=== PATIENT | female | born 1945 | race Hispanic/Latino ===

== ENCOUNTER → 2022-03-24 | Outpatient (CLI) | payer MEDICARE, OTHER ==
[~2022-03-24] MED LIST: ALBUTEROL 0.083% 2.5 MG/3 ML INH IH ONE
== END | disposition home or self-care (01) ==
LOC: RESP 09:16
PROVIDERS: ATTEND Internal Medicine Cardiovascular Disease
DX: R06.00 Dyspnea, unspecified (principal)
CPT/HCPCS: 94060; 94727; 94729

== ENCOUNTER → 2024-02-13 | Outpatient (CLI) | payer OTHER | END | disposition home or self-care (01) | LOC: SHCH 14:07 | PROVIDERS: ATTEND Internal Medicine Cardiovascular Disease | DX: I48.0 Paroxysmal atrial fibrillation (principal) | CPT/HCPCS: 78481; A9512 ==

== ENCOUNTER 2024-07-10 06:59 | Observation (INO) | payer OTHER, MEDICARE ==
[2024-07-06 10:50] VITALS: BP 161/86; PULSE 62; RESP 16; TEMP 97.7
[2024-07-06 10:54] LABS: INR 1.11 (0.85-1.15); PROTHROMBIN TIME 11.6 SEC (9.6-11.6)
[2024-07-06 10:56] LABS: PARTIAL THROMBOPLASTIN TIME 27.7 SEC (26.3-35.5)
[2024-07-06 10:58] LABS: CREATININE 0.8 mg/dL (0.5-1.0)
--- NOTE | 2024-07-06 11:01 | EKG ---
[facility] Test Date: 2024-07-06 Test Time: 10:35:17 Pat Name: FADY HECTOR Department: [facility] Room: Gender: F Business Process Associate: [id number] : 1945 Requested By: ANIA WALTON Order Number: [id number] Reading MD: Trung Montana Measurements Intervals [place] Rate: 60 P: 42 VA: 196 QRS: -69 QRSD: 144 T: 117 QT: 454 QTc: 454 Interpretive Statements Atrial-ventricular dual-paced rhythm Compared to ECG 04/02/2024 11:34:35 No significant changes Electronically Signed On 07-06-2024 15:52:22 CDT by Trung Montana Please click the below link to view image of tracing.
[2024-07-06 11:13] LABS: BASOPHILS # (AUTO) 0.05 K/uL (0.00-0.20); BASOPHILS % (AUTO) 0.4 % (0.0-5.0); EOSINOPHILS # (AUTO) 0.13 K/uL (0.00-0.70); EOSINOPHILS % (AUTO) 1.1 % (0.0-8.0); HEMATOCRIT 40.3 % (36-48); IMMATURE GRANULOCYTE ABSOLUTE 0.06 K/uL (0-1); LYMPHOCYTES # (AUTO) 1.7 K/uL (1.0-4.8); LYMPHOCYTES % (AUTO) 14.9 % (21.0-51.0); MEAN CORPUSCULAR HEMOGLOBIN 30.3 pg (27.0-33.0); MEAN CORPUSCULAR HGB CONC 32.8 g/dL (32.0-36.0); MEAN CORPUSCULAR VOLUME 92.4 fL (79-99); MONOCYTES % (AUTO) 8.4 % (3.0-13.0); NEUTROPHILS # (AUTO) 8.7 K/uL (1.8-7.7); NEUTROPHILS % (AUTO) 74.7 % (40.0-77.0); PLATELET COUNT (AUTO) 212 K/uL (130-400); RED BLOOD CELL COUNT(AUTO) 4.36 MIL/uL (4.00-5.50); RED CELL DISTRIBUTION WIDTH 13.6 % (11.0-15.5); WHITE BLOOD COUNT (AUTO) 11.6 K/uL (4.8-10.8)
[~2024-07-10] VITALS: Ht 149.9 cm; Wt 65.8 kg
[2024-07-10] VITALS (46 sets, daily range): BP systolic 123–164; BP diastolic 69–90; PULSE 60–71; RESP 13–22; TEMP 97.4–98.9; O2SAT 94–98
[~2024-07-10 06:59] MED LIST changes: -ALBUTEROL 0.083% 2.5 MG/3 ML INH IH ONE; +APIX5TAB PO; +ASCO100031 PO; +ATOR40TA71 PO; +DENO60DI SQ; +DRON400T7 PO; +PROP20TA7 PO; +collagen PO; +potassium PO
[2024-07-10] MEDS ORDERED: ondanSETRON 4MG INJ ONE (07:48)
[2024-07-10] MEDS ORDERED: SUCCINYLCHOLINE CHLORIDE 20 MG/ML 10 ML VIAL ONE (07:48)
[2024-07-10] MEDS ORDERED: dexaMETHasone SOD PHOSPHATE 10MG/ML 1ML VIAL ONE (07:48)
[2024-07-10] MEDS ORDERED: NEOSTIGMINE METHYLSULFATE 1MG/ML IV ONE (07:48)
[2024-07-10] MEDS ORDERED: GLYCOPYRROLATE 0.2 MG/ML 5 ML VIAL ONE (07:48)
[2024-07-10] MEDS ORDERED: rocuRONium bROMide 10MG/1ML 5ML VL ONE (07:48)
[2024-07-10] MEDS ORDERED: proPOFol 10 MG/ML 20ML VIAL IV ONE (07:48)
[2024-07-10] MEDS ORDERED: LIDOCAINE PF 100MG/5ML (2%) SYRINGE 5ML ONE (07:48)
[2024-07-10] MEDS ORDERED: FENTanyl CITRate PF 50 MCG/1 ML 2ML VIAL ONE (07:49)
[2024-07-10] MEDS ORDERED: MIDAZOLAM HCL 1 MG/ML 2ML VIAL ONE (07:51)
[2024-07-10] MEDS: 0.9%NACL 1000ML 1,000 ML IV ONE (08:00)
[2024-07-10] MEDS ORDERED: ketaMINE 50MG/ML SYRINGE 50 MG/ML DISP.SYRIN ONE (08:08)
[2024-07-10] MEDS ORDERED: ALBUMIN (HUMAN) 5% 250 ML IV ONE (08:09)
[2024-07-10 08:10] LABS: BASOPHILS # (AUTO) 0.06 K/uL (0.00-0.20); BASOPHILS % (AUTO) 0.5 % (0.0-5.0); EOSINOPHILS # (AUTO) 0.13 K/uL (0.00-0.70); EOSINOPHILS % (AUTO) 1.2 % (0.0-8.0); HEMATOCRIT 39.3 % (36-48); IMMATURE GRANULOCYTE ABSOLUTE 0.07 K/uL (0-1); LYMPHOCYTES # (AUTO) 1.8 K/uL (1.0-4.8); LYMPHOCYTES % (AUTO) 15.8 % (21.0-51.0); MEAN CORPUSCULAR HEMOGLOBIN 30.5 pg (27.0-33.0); MEAN CORPUSCULAR HGB CONC 32.3 g/dL (32.0-36.0); MEAN CORPUSCULAR VOLUME 94.2 fL (79-99); MONOCYTES % (AUTO) 8.6 % (3.0-13.0); NEUTROPHILS # (AUTO) 8.2 K/uL (1.8-7.7); NEUTROPHILS % (AUTO) 73.3 % (40.0-77.0); PLATELET COUNT (AUTO) 141 K/uL (130-400); RED BLOOD CELL COUNT(AUTO) 4.17 MIL/uL (4.00-5.50); RED CELL DISTRIBUTION WIDTH 13.7 % (11.0-15.5); WHITE BLOOD COUNT (AUTO) 11.2 K/uL (4.8-10.8)
[2024-07-10] MEDS ORDERED: phenylEPHRINE HCL 10 MG/ML 1ML VIAL IV ONE (08:10)
[2024-07-10] MEDS ORDERED: EPINEPHrine PF 1MG (1:1,000) 1 MG/ML AMP ONE (08:13)
[2024-07-10] MEDS: FAMOTIDINE 20MG VIAL IV ONE (08:17)
[2024-07-10] MEDS: SUGAMMADEX SODIUM 200 MG/2 ML VIAL IV ONE ×2 (08:18→13:56)
[2024-07-10] MEDS ORDERED: ceFAZolin SODIUM 1 GM VIAL ONE (08:28)
[2024-07-10] MEDS ORDERED: SODIUM BICARB 50MEQ 50ML VIAL 50 ML ONE (08:28)
[2024-07-10] MEDS ORDERED: IOHEXOL-350 50ML VIAL IV ONE (08:28)
[2024-07-10] MEDS ORDERED: BUPIvacaine/PF 0.25% 30ML VIAL IJ ONE (08:28)
[2024-07-10] MEDS ORDERED: LIDOCAINE HCL 1% MDV 50ML VIAL ONE (08:28)
[2024-07-10] MEDS ORDERED: BACITRACIN 1 EACH PACKET TP ONE (12:07)
[2024-07-10] MEDS ORDERED: TRAM50TA4 PO (12:52)
[2024-07-10] MEDS ORDERED: acetaMINOPHEN WITH coDEINE 1 TAB TAB PO PRN ×2 (13:00)
[2024-07-10] MEDS ORDERED: acetaMINOPHEN 500 MG TABLET PO PRN (13:00)
[2024-07-10] MEDS: NALoxone HCL 0.4 MG/1 ML ML ONE (13:52)
[2024-07-10 14:07] LABS: ABG BASE EXCESS -3.6 mmol/L (-2.0-3.0); ABG HCO3 17.6 mmol/L (21.0-28.0); ABG OXYGEN SATURATION 99.2 % (94.0-98.0); ABG PCO2 23 mmHg (32-45); ABG PH 7.504 (7.350-7.450); CARBON MONOXIDE 0.1 % (0.5-1.5); HHb 0.8; PO2, ARTERIAL BG 229.9 mmHg (83.0-108.0); VENT MODE, BG NRM (ROOM AIR)
--- NOTE | 2024-07-10 15:58 | HMCIMG ---
Exam Type: CT HEAD/BRAIN W/O CONTRAST Clinical Information: S/P ICD UPGRADE Comparison: None CT Dose Index (CTDI): 57.33 mGy Dose Length Product (DLP): 956.79 total mGy-cm Findings: The examination shows atrophy. There is low attenuation throughout the periventricular white matter locations, consistent with chronic small vessel ischemic changes. No acute intra- or extra-axial fluid collections are seen. There is no evidence of acute or chronic hemorrhage. There is no mass effect or shift of midline structures. There are no areas to suggest acute infarct. The skull windows show no significant abnormalities. IMPRESSION: 1. ATROPHY AND CHRONIC SMALL VESSEL ISCHEMIC CHANGES. This study was performed using dose reduction techniques to include automated exposure control and/or adjustment of the mA and/or kV according to patient size.
--- NOTE | 2024-07-10 15:58 | HMCIMG ---
Exam Type: CHEST 1VW Clinical Information: s/p DIE PRESSER-D Comparison: None Findings: The lungs are clear of infiltrates. The heart is enlarged in size. The bony and soft tissue structures of the chest are unremarkable. Left cardiac pacemaker is noted with leads in place. Impression: Clear lungs.
[2024-07-11 03:10] VITALS: BP 141/76; PULSE 65; RESP 16; TEMP 98.2
[2024-07-11 07:00] VITALS: BP 143/76; PULSE 65; RESP 20; TEMP 98
[2024-07-11 07:25] VITALS: PULSE 86; RESP 18; O2SAT 98
[2024-07-11 08:00] VITALS: O2SAT 98
--- NOTE | 2024-07-11 09:47 | NUR ---
DCP: HOME with current services Pt lives alone in home she rents in [place], pt also receives $150 in food stamp assistance. Pt has provider services 7-12 and respite 12-6 thru [facility]. Daughter Socorro Short [phone] states they assist pt with "everything". There are days that pt can not lift arm and needs assist with feeding as well. Pt has a walker with seat, w/c, shower chair, bsc, grab bars, no HH or HD services. Daughter transports as needed. PCP is Nic Brantley and uses [facility] for rx needs. Discussed dcp needs, pt denies need at this time and [place]. Addendum: 07/11/24 at 0948 by BEN LUGO Amended: Links added.
[2024-07-11 11:00] VITALS: BP 116/70; PULSE 67; RESP 20; TEMP 98.1
--- NOTE | 2024-07-11 14:00 | NUR ---
DISCHARGE HOME IV.TLEPAK, ID BANDS REMOVED. DISCHARGE INSTRUCTIONS GIVEN AND EXPLAINED TO PATIENT AND FAMILY AT BEDSIDE. PATIENT WHEELED DOWN TO PRIVATE CAR. BELONGINGS PACKED AND TAKEN BY SON.
--- NOTE | 2024-07-12 09:43 | HMCIMG ---
Exam Type: CHEST 1VW Clinical Information: s/p HIGHWAY ENGINEER-D Comparison: None Findings: The lungs are clear of infiltrates. The heart is enlarged in size. The bony and soft tissue structures of the chest are unremarkable. Left cardiac pacemaker is noted with leads in place. Impression: Clear lungs.
== END 2024-07-11 14:00 | disposition home or self-care (01) ==
LOC: DAH 06:59 → DAHIP 07:00 → 2AH 18:01
PROVIDERS: ADMIT Internal Medicine Cardiovascular Disease; ATTEND Internal Medicine Cardiovascular Disease
DX: I25.5 Ischemic cardiomyopathy (principal); I11.0 Hypertensive heart disease with heart failure; I50.42 Chronic combined systolic (congestive) and diastolic (congestive) heart failure; I48.0 Paroxysmal atrial fibrillation; I25.10 Atherosclerotic heart disease of native coronary artery without angina pectoris; E78.5 Hyperlipidemia, unspecified; I25.2 Old myocardial infarction; Z79.899 Other long term (current) drug therapy; Z79.01 Long term (current) use of anticoagulants
CPT/HCPCS: 80048; 85025 ×2; 85610; 85730; 36415 ×2; 93005; 33225; 33264; 82435; 82947; 84132; 84295; 82803; 85018; 83605; 71045 ×2; 70450; 36600; 94660; C1769 ×4; C1882; C1900; G0378 ×22; P9045; J3490 ×6; J3010; J0690; J2310; J1100; J0330; J7030; J0665; J2003; J0171; J2250; J2704; J2405; J2710; J2371; Q9967; A4215; A4223 ×3; A4222; A4221; A4663; A4216; A4606